=== PATIENT | male | born 1995 | race Caucasian/White ===

== ENCOUNTER 2021-03-17 13:39 | Emergency (ER) | payer OTHER, SELFPAY ==
[2021-03-17 13:56] VITALS: BP 147/86; PULSE 112; RESP 20; TEMP 37.8; O2SAT 99
--- NOTE | 2021-03-17 14:42 | ED.GENADULT ---
HPI - General Adult General Chief complaint: Upper Respiratory Infection <RAQUEL Teran Last Filed: 03/17/21 15:14> Stated complaint: Fever, sore throat, weak <RAQUEL Terna Last Filed: 03/17/21 15:14> Time Seen by Provider: 03/17/21 13:57 <RAQUEL Teran Last Filed: 03/17/21 15:14> Related Data Home medications: Home Medications Medication Instructions Recorded Confirmed topiramate 03/17/21 <RAQUEL Teran Last Filed: 03/17/21 15:14> Allergies/adverse reactions: Allergies Allergy/AdvReac Type Severity Reaction Status Date / Time Penicillins Allergy Unknown Verified 03/17/21 14:01 <RAQUEL Teran Last Filed: 03/17/21 15:14> Exam Const: General: no acute distress and alert <RAQUEL Teran Last Filed: 03/17/21 15:14> Orientation/consciousness: patient oriented x3 <RAQUEL Teran Last Filed: 03/17/21 15:14> HENMT: Head: normal to inspection <RAQUEL Teran Last Filed: 03/17/21 15:14> Ears: TM's normal bilaterally <RAQUEL Teran Last Filed: 03/17/21 15:14> Throat: posterior oropharynx abnormal erythema <RAQUEL Teran Last Filed: 03/17/21 15:14> Eyes: Conjunctivae: conjunctivae normal <RAQUEL Teran Last Filed: 03/17/21 15:14> Pupils: Equal, round and reactive pupils present <RAQUEL Teran Last Filed: 03/17/21 15:14> Chest: Chest palpation & inspection: normal inspection of the chest <RAQUEL Teran Last Filed: 03/17/21 15:14> Resp: Effort & Inspection: normal respiratory effort <RAQUEL Teran Last Filed: 03/17/21 15:14> Auscultation: clear to auscultation bilaterally <RAQUEL Teran Last Filed: 03/17/21 15:14> Cardio: Rate: regular rate <RAQUEL Teran Last Filed: 03/17/21 15:14> Rhythm: regular rhythm <RAQUEL Teran Last Filed: 03/17/21 15:14> GI: GI Palp: Yes Soft to palpation <RAQUEL Teran Last Filed: 03/17/21 15:14> Skin: General skin exam: normal color <RAQUEL Teran Last Filed: 03/17/21 15:14> Extrem: General: normal to inspection <RAQUEL Teran Last Filed: 03/17/21 15:14> Psych: Mental Status: mental status grossly normal <RAQUEL Teran Last Filed: 03/17/21 15:14> Course Course Emergency Course: Patient states he does not tolerate any of the cillins . He last had penicillin 2 years ago and stated that it made him feel weird does not believe he got a rash but he would prefer not to use any of the penicillins. <RAQUEL Teran Last Filed: 03/17/21 15:14> Vital Signs Vital signs: Vital Signs Temperature 37.8 C H 03/17/21 13:56 Pulse Rate 112 H 03/17/21 13:56 Respiratory Rate 20 03/17/21 13:56 Blood Pressure 147/86 H 03/17/21 13:56 Pulse Oximetry 99 03/17/21 13:56 Temperature 37.8 C H 03/17/21 13:56 Pulse Rate 100 03/17/21 16:05 Respiratory Rate 18 03/17/21 16:05 Blood Pressure 140/82 03/17/21 16:05 Pulse Oximetry 100 03/17/21 16:05 <RAQUEL Teran Last Filed: 03/17/21 15:14> Medical Decision Making Vital Signs Vital Signs: Vital Signs Temperature 37.8 C H 03/17/21 13:56 Pulse Rate 112 H 03/17/21 13:56 Respiratory Rate 20 03/17/21 13:56 Blood Pressure 147/86 H 03/17/21 13:56 Pulse Oximetry 99 03/17/21 13:56 Temperature 37.8 C H 03/17/21 13:56 Pulse Rate 100 03/17/21 16:05 Respiratory Rate 18 03/17/21 16:05 Blood Pressure 140/82 03/17/21 16:05 Pulse Oximetry 100 03/17/21 16:05 <RAQUEL Teran Last Filed: 03/17/21 15:14> Lab Data Labs: Strep Screen Presumptive Negative *(Reference Range: Negative)* <RAQUEL Teran Filed: 03/17/21 15:14> Discharge Plan Discharge Clinical Impression: Strep throat <RAQUEL Teran F
[2021-03-17 16:05] VITALS: BP 140/82; PULSE 100; RESP 18; O2SAT 100
== END 2021-03-17 16:07 | disposition home or self-care (01) ==
LOC: ANHED 15:17
PROVIDERS: Emergency Provider Emergency Medicine; PCP Emergency Medicine
DX: J02.0 Streptococcal pharyngitis (principal)
CPT/HCPCS: 87081; 87880; 99283